=== PATIENT | male | born 1970 | race African-American/Black ===

== ENCOUNTER 2020-08-21 21:08 | Emergency (ER) | payer BC ==
[~2020-08-21] VITALS: Ht 170.2 cm; Wt 84.1 kg
[2020-08-21 21:34] LABS: BILIRUBIN,URINE NEGATIVE (NEG); CLARITY,URINE CLEAR; COLOR,URINE YELLOW; NITRITE,URINE NEGATIVE (NEG); PH,URINE 6.5 (<5.0-8.0); PROTEIN,URINE NEGATIVE (NEG-TRACE); UROBILINOGEN,URINE 0.2 mg/dL (0.2 mg/dL)
[2020-08-21 21:41] LABS: BACTERIA,URINE 0 /HPF (0-FEW); RBC,URINE 0 /HPF (0-2); WBC,URINE RARE /HPF (0-4)
[2020-08-21 22:53] VITALS: BP 150/90
--- NOTE | 2020-08-21 22:54 | PHYS DOC ---
Past Medical History Past Medical History: No Pertinent History Past Surgical History: No Surgical History Smoking Status: Former Smoker Alcohol Use: Occasionally Adult General Chief Complaint Chief Complaint: ABDOMINAL PAIN HPI HPI Patient is a 50 year old presenting the emergency department for urinary problems and abdominal pain. Patient states that over the last 4 days he has been having worsening sensation of suprapubic abdominal pain that principally occurs when he is voiding. Patient notes that he is having some dysuria during the voiding as well. States that the abdominal pain seems to return pretty frequently in case of the sensation that he needs to void. Patient notes that he suffered an accidental traumatic event to the genitalia 4 days ago while having intercourse with his . States that he is sexually active with a single partner. Denies any discharge or hematuria. Denies any fever, chills, nausea, vomiting, dizziness or lightheadedness. Review of Systems Review of Systems Constitutional: Denies fever or chills [] Eyes: Denies change in visual acuity, redness, or eye pain [] HENT: Denies nasal congestion or sore throat [] Respiratory: Denies cough or shortness of breath [] Cardiovascular: No additional information not addressed in HPI [] GI: Denies abdominal pain, nausea, vomiting, bloody stools or diarrhea [] : Denies dysuria or hematuria [] Musculoskeletal: Denies back pain or joint pain [] Integument: Denies rash or skin lesions [] Neurologic: Denies headache, focal weakness or sensory changes [] Endocrine: Denies polyuria or polydipsia [] All other systems were reviewed and found to be within normal limits, except as documented in this note. Allergies Allergies Allergies Coded Allergies Type Severity Reaction Last Updated Verified Penicillins Allergy Severe ANGIOEDEMA 08/21/20 Yes Physical Exam Physical Exam Constitutional: Well developed, well nourished, no acute distress, non-toxic appearance. [] HENT: Normocephalic, atraumatic, bilateral external ears normal, oropharynx moist, no oral exudates, nose normal. [] Eyes: PERRLA, EOMI, conjunctiva normal, no discharge. [] Neck: Normal range of motion, no tenderness, supple, no stridor. [] Cardiovascular:Heart rate regular rhythm, no murmur [] Lungs & Thorax: Bilateral breath sounds clear to auscultation [] Abdomen: Bowel sounds normal, soft, mild tenderness in suprapubic region without right lower quadrant or left lower quadrant tenderness, no masses, no pulsatile masses. [] Skin: Warm, dry, no erythema, no rash. [] Back: No tenderness, no CVA tenderness. [] Extremities: No tenderness, no cyanosis, no clubbing, ROM intact, no edema. [] Neurologic: Alert and oriented X 3, normal motor function, normal sensory function, no focal deficits noted. [] Psychologic: Affect normal, judgement normal, mood normal. [] Current Patient Data Vital Signs Vital Signs Date Time Temp Pulse Resp B/P (MAP) Pulse Ox O2 Delivery O2 Flow Rate FiO2 08/21/20 21:20 98.0 120 20 161/94 (116) 98 Room Air 98.0 Lab Values Laboratory Tests Test 08/21/20 21:19 Urine Collection Type Unknown Urine Color Yellow Urine Clarity Clear Urine pH 6.5 (<5.0-8.0) Urine Specific [place] <=1.005 (1.000-1.030) Urine Protein Negative mg/dL (NEG-TRACE) Urine Glucose (UA) Negative mg/dL (NEG) Urine Ketones (Stick) Trace mg/dL (NEG) Urine Blood Negative (NEG) Urine Nitrite Negative (NEG) Urine Bilirubin Negative (NEG) Urine Urobilinogen Dipstick 0.2 mg/dL (0.2 mg/dL) Urine Leukocyte Esterase Negative (NEG) Urine RBC 0 /HPF (0-2) Urine WBC Rare /HPF (0-4) Urine Squamous Epithelial Cells Occ /LPF Urine Bacteria 0 /HPF (0-FEW) EKG EKG [] Radiology/Procedures Radiology/Procedures [] Course & Med Decision Making Course & Med Decision Making Pertinent Labs and Imaging studies reviewed. (See chart for details) 50m presenting with moderate dysuria and what appears to be a moderate amount of urinary retention after suffering trauma to the genitalia. At this time there is a significant consideration for acute prostatitis secondary to trauma. There is also consideration for retention secondary to prostatic hypertrophy. Urinalysis was obtained without any clear evidence of urinary tract infection. However I did obtain an ultrasound before and after voiding patient was noted to have a small residual of approximately 200 cc. Patient does not appear to be a danger of bladder rupture however I will treat the patient for what appears to be acute prostatitis and discharge the patient with urology follow-up. I counseled the patient extensively on this condition and he verbalized under standing and agreement with discharge plan Mikaela Disclaimer Mikaela Disclaimer This electronic medical record was generated, in whole or in part, using a voice recognition dictation system. Departure Departure Impression: Primary Impression: Prostatitis Disposition: 01 DC HOME SELF CARE/HOMELESS Condition: GOOD Patient Instructions: Prostatitis Additional Instructions: EMERGENCY DEPARTMENT GENERAL DISCHARGE INSTRUCTIONS Thank you for coming to [facility] Emergency Department (ED) today and trusting us with you care. We trust that you had a positive experience in our Emergency Department. If you wish to speak to the department management, you may call the Director at [phone]. YOUR FOLLOW UP INSTRUCTIONS ARE FOLLOWS: 1. Do you have a private Doctor? If you do not have a private doctor, please ask for a resource list of physicians or clinics that may be able to assist you with follow up care. 2. The Emergency Physicain has interpreted your x-rays. The X-Ray specialist will also review them. If there is a change in the findings, you will be notified in 48 hours when at all possible. 3. A lab test or culture has been done, your results will be reviewed and you will be notified if you need a change in treatment. ADDITIONAL INSTRUCTIONS AND INFORMATION: 1. Your care today has been supervised by a physician who is specially trained in emergency care. Many problems require more than one evaluation for a complete diagnosis and treatment. We recommend that you schedule your follow up appointment as recommended to ensure complete treatment of you illness or injury. If you are unable to obtain follow up care and continue to have a problem, or if your condition worsens, we recommend that you return to the ED. 2. We are not able to safely determine your condition over the phone nor are we able to give sound medical advice over the phone. For these safety reasons, if you call for medical advice we will ask you to come to the ED for further evaluation. 3. If you have any questions regarding these discharge instructions please call the ED at [phone]. SAFETY INFORMATION: In the interest of safety, wellness, and injury prevention; we encourage you to wear your sealbelt, if you smoke; quite smoking, and we encourage family to use a protective helmet for bicycling and other sporting events that present an increased risk for head injury. IF YOUR SYMPTOMS WORSEN OR NEW SYMPTOMS DEVELOP, OR YOU HAVE CONCERNS ABOUT YOUR CONDITION; OR IF YOUR CONDITION WORSENS WHILE YOU ARE WAITING FOR YOUR FOLLOW UP APPOINTMENT; EITHER CONTACT YOUR PRIMARY CARE DOCTOR, THE PHYSICIAN WHOSE NAME AND NUMBER YOU WERE GIVEN, OR RETURN TO THE ED IMMEDIATELY. APRIL LANZA MD Aug 21, 2020 22:54
[2020-08-21] MEDS ORDERED: IBUPROFEN 400 MG TABLET. PO ONE (23:00)
[2020-08-21] MEDS ORDERED: ACETAMINOPHEN 500 MG TABLET PO ONE (23:00)
[2020-08-21] MEDS ORDERED: CIPR250T30 PO (23:26)
[2020-08-21] MEDS ORDERED: OMEP20CA16 PO (23:26)
[2020-08-21] MEDS ORDERED: TAMS0.4C97 PO (23:27)
[2020-08-21] MEDS ORDERED: PHEN100T82 PO (23:27)
[2020-08-21] MEDS ORDERED: AZITHROMYCIN 250 MG TABLET. PO ONE (23:30)
[2020-08-21] MEDS ORDERED: cefTRIAXone IM 250 MG VIAL IM ONE (23:30)
== END 2020-08-21 23:28 | disposition home or self-care (01) ==
LOC: ER 21:08
DX: N41.9 Inflammatory disease of prostate, unspecified (principal); R10.2 Pelvic and perineal pain; R20.2 Paresthesia of skin; R30.0 Dysuria; Z87.891 Personal history of nicotine dependence; Z88.0 Allergy status to penicillin
CPT/HCPCS: 81001; 96372; 99283; J0696

== ENCOUNTER 2020-12-24 02:05 | Emergency (ER) | payer BC ==
[~2020-12-24] VITALS: Ht 170.2 cm; Wt 86.2 kg
[~2020-12-24 02:05] MED LIST: CIPR250T30 PO; OMEP20CA16 PO; PHEN100T82 PO; TAMS0.4C97 PO
[2020-12-24] MEDS ORDERED: SULF1TAB24 PO (02:22)
--- NOTE | 2020-12-24 02:22 | ED.ADGEN ---
Past Medical History Past Medical History: No Pertinent History Past Surgical History: No Surgical History Smoking Status: Former Smoker Alcohol Use: Occasionally General Adult EDM: Chief Complaint: SKIN RASH/ABSCESS HPI: HPI: Patient is a 50 year old male coming in for a painful bump to the top of his head. Patient states that he had an ingrown hair to his and tried to pull out that had increased in size upon. Denies use of warm compresses with purulent drainage and says a size overall is was going down but stopped doing them. Patient denies any fevers. States he has had one abscess in the past but denies any known history of MRSA. Is in tonight because he is concerned because he is getting ready to go out of town. Review of Systems: Review of Systems: All other systems within normal limits except for as noted in the HPI Allergies: Allergies: Allergies Coded Allergies Type Severity Reaction Last Updated Verified Penicillins Allergy Severe ANGIOEDEMA 08/21/20 Yes Physical Exam: PE: Constitutional: Well developed, well nourished, no acute distress, non-toxic appearance. [] HENT: Normocephalic, atraumatic, bilateral external ears normal, nose normal. [] Eyes: PERRLA, conjunctiva normal, no discharge. [] Neck: No rigidity, supple, no stridor. [] Cardiovascular: Regular rate and rhythm, brisk cap refill [] Lungs & Thorax: Non labored symmetric respirations, no tachypnea or respiratory distress [] Abdomen: Soft, nondistended. Skin: Warm, dry, no erythema, no rash. Scabbed bump to top of head [] Back: Unremarkable Extremities: No deformities, range of motion grossly intact, no lower extremity edema [] Neurologic: Alert and oriented X 3, no focal deficits noted. [] Psychologic: Affect normal, judgement normal, mood normal. [] EKG: EKG: [] Heart Score: C/O Chest Pain: No Risk Factors: Risk Factors: DM, Current or recent (<one month) smoker, HTN, HLP, family history of CAD, obesity. Risk Scores: Score 0 - 3: 2.5% MACE over next 6 weeks - Discharge Home Score 4 - 6: 20.3% MACE over next 6 weeks - Admit for Clinical Observation Score 7 - 10: 72.7% MACE over next 6 weeks - Early Invasive Strategies Radiology/Procedures: Radiology/Procedures: [] Course & Med Decision Making: Course & Med Decision Making Small scalp lump that is less than 1 cm, no fluctuance, will treat with antibiotics and advised patient to use warm compresses. Mikaela Disclaimer: Mikaela Disclaimer: This electronic medical record was generated, in whole or in part, using a voice recognition dictation system. Departure Departure Impression: Primary Impression: Scalp abscess Disposition: HOME / SELF CARE / HOMELESS Condition: STABLE Referrals: NO PCP (PCP) Patient Instructions: Abscess Additional Instructions: Warm compresses at least 4 times per day, continue your antibiotics until they are completed. Scripts Sulfamethoxazole/Trimethoprim (BACTRIM DS TABLET) 1 Each Tablet 1 TAB PO BID for infection for 10 Days, #20 TAB Prov: NICCI SOLORZANO MD 12/24/20 NICCI SOLORZANO MD Dec 24, 2020 02:22
[2020-12-24 02:29] VITALS: BP 140/81
[2020-12-24] MEDS ORDERED: SMZ/TMP 800/160MG TABLET. PO ONE (02:30)
== END 2020-12-24 02:35 | disposition home or self-care (01) ==
LOC: ER 02:05
DX: L02.811 Cutaneous abscess of head [any part, except face] (principal); Z87.891 Personal history of nicotine dependence; Z88.0 Allergy status to penicillin
CPT/HCPCS: 99283